=== PATIENT | male | born 1940 | race Caucasian/White ===

== ENCOUNTER 2025-04-07 10:09 | Inpatient (IN) | payer BC, MEDICAID ==
[~2025-04-07] VITALS: Ht 167.6 cm; Wt 64.4 kg
[2025-04-07] VITALS (43 sets, daily range): BP systolic 73–232; BP diastolic 37–152; PULSE 50–83; RESP 16–25; TEMP 36.9–37.00296; O2SAT 98–100
[~2025-04-07 10:09] MED LIST: FOLI1TAB87 MT; FURO80TA3 MT
[2025-04-07 11:16] LABS: BASOPHILS % 0.8 % (0.0-2.0); EOSINOPHILS % 3.2 % (0.0-5.0); HEMATOCRIT. 36.3 % (42.0-52.0); HEMOGLOBIN. 11.7 g/dL (14.0-18.0); LYMPHOCYTES % 27.1 % (20.0-50.0); MEAN CORPUSCULAR HEMOGLOBIN 32.1 pg (28.0-32.0); MEAN CORPUSCULAR HGB CONC 32.3 g/dL (31.0-37.0); MEAN CORPUSCULAR VOLUME 99.5 fL (80.0-94.0); MEAN PLATELET VOLUME 8.8 fl (7.4-10.4); MONOCYTES % 8.2 % (2.0-8.0); NEUTROPHILS % 60.7 % (40.0-76.0); PLATELET 150 x1000/uL (130-400); RED BLOOD CELL COUNT 3.65 mill/uL (4.7-6.1); RED CELL DISTRIBUTION WIDTH 15.2 % (11.6-14.6); WHITE BLOOD COUNT 7.6 x1000/uL (4.5-11.0)
[2025-04-07] MEDS ORDERED: LORAZEPAM 2MG/ML INJ IV ONE (11:30)
[2025-04-07 11:31] LABS: CHLORIDE 104 mEq/L (98-107); PROTHROMBIN TIME 10.6 sec (9.6-11.0); SODIUM 141 mEq/L (136-145)
[2025-04-07 11:32] LABS: CALCIUM 9.8 mg/dL (8.7-10.4); CARBON DIOXIDE 21 mEq/L (21-32)
[2025-04-07 11:37] LABS: GLUCOSE 141 mg/dL (70-105); TROPONIN I HIGH SENSITIVITY 23 ng/L (3.0-53); UREA NITROGEN BLOOD 57 mg/dL (9-23)
[2025-04-07 11:39] LABS: ALANINE AMINOTRANSFERASE 36 IU/L (10-49); ALBUMIN 4.5 g/dL (3.2-4.8); ASPARTATE AMINOTRANSFERASE 38 IU/L (<34); BILIRUBIN DIRECT 0.1 mg/dL (<=3.0); BILIRUBIN TOTAL 0.3 mg/dL (0.1-1.0); PROTEIN TOTAL 7.9 g/dL (6.0-8.3)
[2025-04-07] MEDS: LORAZEPAM 2MG/ML UD SYRINGE IV SCH (11:41)
[2025-04-07] MEDS: HYDRALAZINE 20MG/ML VIAL IV ONE (11:45)
[2025-04-07] MEDS: ETOMIDATE 2MG/ML 10ML VIAL IV ONE (12:03)
[2025-04-07] MEDS: VECURONIUM BROMIDE 10 MG/VIAL IV ONE (12:03)
[2025-04-07 12:23] LABS: CREATININE 9.2 mg/dL (0.6-1.3); POTASSIUM 6.8 mEq/L (3.5-5.1)
[2025-04-07] MEDS ORDERED: CALCIUM GLUCONATE 1,000 MG in DEXT 5% WATER 100 ML IV ONE (12:30)
[2025-04-07] MEDS: CALCIUM GLUCONATE 1GM PREMIX 50 ML IV SCH (12:43)
[2025-04-07] MEDS: INSULIN REGULAR (HUMULIN R) 1000UNITS/10ML VIAL IV ONE (13:02)
[2025-04-07] MEDS: DEXTROSE 50% WATER 50ML SYRINGE IV ONE (13:04)
[2025-04-07] MEDS: SODIUM BICARBONATE 8.4% 50MEQ/50ML SYR IV ONE (13:04)
[2025-04-07] MEDS: PROPOFOL 10MG/ML 100ML 100 ML IV SCH (13:39)
[2025-04-07] MEDS ORDERED: LIDOCAINE HCL 1% 10 MG/ML 10ML VIAL ONE (14:36)
[2025-04-07 18:36] LABS: BG BASE EXCESS -6.3 mmol/L (-2.0-3.0); BG CARBOXYHEMOGLOBIN 0.4 % (0.5-1.5); BG DEOXYHEMOGLOBIN 0.5 % (0.0-5.0); BG FRACTION INSPIRED OXYGEN 100; BG HCO3 ACT 18.9 mmol/L (21.0-28.0); BG METHEMOGLOBIN 0.3 % (0.5-1.5); BG OXYGEN SATURATION 99.5 % (94.0-98.0); BG OXYHEMOGLOBIN 98.8 % (94.0-98.0); BG PCO2 36.3 mmHg (35.0-48.0); BG PH 7.335 (7.350-7.450); BG PO2 440.2 mmHg (83.0-108.0); BG SAMPLE SITE RIGHT RADIAL; BG TOTAL HEMOGLOBIN 10.8 g/dL (13.5-17.5); BG VENT MODE VENT - AC
[2025-04-07] MEDS: SODIUM CHLORIDE 0.9% 1,000 ML IV SCH (19:58)
[2025-04-07] MEDS: SODIUM BICARBONATE 8.4% 50MEQ/50ML SYR IV NR (19:58)
[2025-04-07 20:53] LABS: POTASSIUM 5.4 mEq/L (3.5-5.1)
[2025-04-07] MEDS: LEVOFLOXACIN 500MG PREMIX 100 ML IV SCH (21:21)
[2025-04-07] MEDS: PHENYLEPHRINE 100 MG in DEXT 5% WATER 240 ML IV PRN (21:21)
[2025-04-07] MEDS: VANCOMYCIN 1G PREMIX 200 ML IV SCH (21:21)
[2025-04-08] VITALS (78 sets, daily range): BP systolic 107–190; BP diastolic 47–79; PULSE 58–68; RESP 10–23; TEMP 36.7–36.9; O2SAT 96–100
[2025-04-08 00:33] LABS: CREATINE KINASE MB FRACTION 3.1 ng/mL (0.5-3.6)
[2025-04-08] MEDS: PROPOFOL 10MG/ML 100ML 100 ML IV PRN (05:02)
[2025-04-08 05:31] LABS: BASOPHILS % 0.5 % (0.0-2.0); EOSINOPHILS % 2.1 % (0.0-5.0); HEMATOCRIT. 30.9 % (42.0-52.0); HEMOGLOBIN. 10.3 g/dL (14.0-18.0); LYMPHOCYTES % 10.6 % (20.0-50.0); MEAN CORPUSCULAR HEMOGLOBIN 32.7 pg (28.0-32.0); MEAN CORPUSCULAR HGB CONC 33.3 g/dL (31.0-37.0); MEAN CORPUSCULAR VOLUME 98.3 fL (80.0-94.0); MEAN PLATELET VOLUME 9.1 fl (7.4-10.4); MONOCYTES % 11.1 % (2.0-8.0); NEUTROPHILS % 75.7 % (40.0-76.0); PLATELET 122 x1000/uL (130-400); RED BLOOD CELL COUNT 3.15 mill/uL (4.7-6.1); WHITE BLOOD COUNT 6.6 x1000/uL (4.5-11.0)
[2025-04-08 05:51] LABS: POTASSIUM 4.7 mEq/L (3.5-5.1)
[2025-04-08 05:53] LABS: CALCIUM 8.7 mg/dL (8.7-10.4)
[2025-04-08 06:00] LABS: PHOSPHORUS 4.3 mg/dL (2.5-4.9)
[2025-04-08 06:03] LABS: CREATININE 6.7 mg/dL (0.6-1.3)
[2025-04-08] MEDS: ENOXAPARIN 30MG/0.3ML SYR SUBCUT SCH (08:24)
[2025-04-08] MEDS ORDERED: HALOPERIDOL LACTATE 5MG/ML VIAL IM NR (17:00)
[2025-04-08 18:52] LABS: BG CARBOXYHEMOGLOBIN 0.2 % (0.5-1.5); BG DEOXYHEMOGLOBIN 1.9 % (0.0-5.0); BG FRACTION INSPIRED OXYGEN 40; BG HCO3 ACT 20.8 mmol/L (21.0-28.0); BG METHEMOGLOBIN 0.3 % (0.5-1.5); BG OXYGEN SATURATION 98.1 % (94.0-98.0); BG OXYHEMOGLOBIN 97.6 % (94.0-98.0); BG PCO2 36.7 mmHg (35.0-48.0); BG PH 7.371 (7.350-7.450); BG SAMPLE SITE RIGHT BRACHIAL; BG TOTAL HEMOGLOBIN 10.8 g/dL (13.5-17.5); BG VENT MODE VENT - CPAP
[2025-04-08] MEDS: HYDRALAZINE 20MG/ML VIAL IV NR (20:51)
[2025-04-08] MEDS: ONDANSETRON HCL 4MG/2ML INJ IV PRN (21:33)
[2025-04-08] MEDS: LORAZEPAM 2MG/ML UD SYRINGE IV PRN (21:50)
[2025-04-08] MEDS: HYDROMORPHONE HCL/PF 2MG/ML INJ IV PRN (21:51)
[2025-04-08 22:23] LABS: BG CARBOXYHEMOGLOBIN 0.8 % (0.5-1.5); BG DEOXYHEMOGLOBIN 2.7 % (0.0-5.0); BG FRACTION INSPIRED OXYGEN 28; BG HCO3 ACT 20.2 mmol/L (21.0-28.0); BG METHEMOGLOBIN 0.3 % (0.5-1.5); BG OXYGEN SATURATION 97.3 % (94.0-98.0); BG OXYHEMOGLOBIN 96.2 % (94.0-98.0); BG PH 7.344 (7.350-7.450); BG PO2 101.2 mmHg (83.0-108.0); BG SAMPLE SITE RIGHT RADIAL; BG TOTAL HEMOGLOBIN 10.4 g/dL (13.5-17.5); BG VENT MODE NASAL CANNULA
[2025-04-09] VITALS (32 sets, daily range): BP systolic 102–159; BP diastolic 50–100; PULSE 61–76; RESP 11–26; TEMP 36.3–37; O2SAT 89–100
[2025-04-09 05:20] LABS: BASOPHILS % 0.4 % (0.0-2.0); EOSINOPHILS % 2.2 % (0.0-5.0); HEMATOCRIT. 30.4 % (42.0-52.0); HEMOGLOBIN. 10.3 g/dL (14.0-18.0); LYMPHOCYTES % 11.4 % (20.0-50.0); MEAN CORPUSCULAR HEMOGLOBIN 32.8 pg (28.0-32.0); MEAN CORPUSCULAR HGB CONC 33.7 g/dL (31.0-37.0); MEAN CORPUSCULAR VOLUME 97.4 fL (80.0-94.0); MEAN PLATELET VOLUME 9.5 fl (7.4-10.4); MONOCYTES % 10.8 % (2.0-8.0); NEUTROPHILS % 75.2 % (40.0-76.0); PLATELET 118 x1000/uL (130-400); RED BLOOD CELL COUNT 3.13 mill/uL (4.7-6.1); RED CELL DISTRIBUTION WIDTH 14.6 % (11.6-14.6); WHITE BLOOD COUNT 7.6 x1000/uL (4.5-11.0)
[2025-04-09 05:23] LABS: POTASSIUM 5.4 mEq/L (3.5-5.1)
[2025-04-09 05:24] LABS: CALCIUM 8.2 mg/dL (8.7-10.4)
[2025-04-09 05:31] LABS: CREATININE 8.4 mg/dL (0.6-1.3)
[2025-04-09] MEDS ORDERED: DEXTROSE 50% WATER 50ML SYRINGE IV PRN (07:30)
[2025-04-09 09:06] LABS: BG BASE EXCESS -6.3 mmol/L (-2.0-3.0); BG CARBOXYHEMOGLOBIN 1.5 % (0.5-1.5); BG DEOXYHEMOGLOBIN 6.2 % (0.0-5.0); BG FRACTION INSPIRED OXYGEN 28; BG HCO3 ACT 20.6 mmol/L (21.0-28.0); BG METHEMOGLOBIN 0.3 % (0.5-1.5); BG OXYGEN SATURATION 93.7 % (94.0-98.0); BG PCO2 46.8 mmHg (35.0-48.0); BG PH 7.262 (7.350-7.450); BG PO2 75.6 mmHg (83.0-108.0); BG SAMPLE SITE RIGHT RADIAL; BG TOTAL HEMOGLOBIN 10.9 g/dL (13.5-17.5); BG VENT MODE NASAL CANNULA
[2025-04-09] MEDS: BLOOD SUGAR DIAGNOSTIC STRIP TEST SCH (11:30)
[2025-04-09] MEDS: INSULIN LISPRO 100 UNITS/ML SUBCUT SCH (11:40)
[2025-04-09] MEDS: VANCOMYCIN 500MG/100ML IV NR (17:58)
[2025-04-09] MEDS: LEVOFLOXACIN 250MG PREMIX 50 ML IV SCH (21:58)
[2025-04-09] MEDS: IPRATROPIUM/ALBUTEROL 0.5-3(2.5)MG/3ML NEB NEB PRN (23:01)
[2025-04-09] MEDS ORDERED: NALOXONE HCL 0.4MG/ML VIAL IV PRN (23:45)
[2025-04-10] VITALS (9 sets, daily range): BP systolic 115–172; BP diastolic 47–95; PULSE 67–93; RESP 15–21; TEMP 36.2–37.7; O2SAT 92–98
[2025-04-10 04:48] LABS: POTASSIUM 4.8 mEq/L (3.5-5.1)
[2025-04-10 04:50] LABS: CALCIUM 8.5 mg/dL (8.7-10.4)
[2025-04-10 04:59] LABS: CREATININE 7.5 mg/dL (0.6-1.3)
[2025-04-10 06:15] LABS: BASOPHILS % 0.4 % (0.0-2.0); EOSINOPHILS % 1.7 % (0.0-5.0); HEMATOCRIT. 29.9 % (42.0-52.0); LYMPHOCYTES % 12.1 % (20.0-50.0); MEAN CORPUSCULAR HEMOGLOBIN 32.5 pg (28.0-32.0); MEAN CORPUSCULAR HGB CONC 33.4 g/dL (31.0-37.0); MEAN CORPUSCULAR VOLUME 97.4 fL (80.0-94.0); MONOCYTES % 11.6 % (2.0-8.0); NEUTROPHILS % 74.2 % (40.0-76.0); PLATELET 116 x1000/uL (130-400); RED BLOOD CELL COUNT 3.07 mill/uL (4.7-6.1); RED CELL DISTRIBUTION WIDTH 14.5 % (11.6-14.6); WHITE BLOOD COUNT 7.2 x1000/uL (4.5-11.0)
[2025-04-10] MEDS: ACETAMINOPHEN 325MG TABLET PO PRN (15:40)
[2025-04-10] MEDS: LOSARTAN 25 MG TABLET PO SCH (17:04)
[2025-04-10] MEDS: LABETALOL HCL 100MG TABLET PO SCH (18:00)
[2025-04-11] VITALS (13 sets, daily range): BP systolic 121–185; BP diastolic 60–74; PULSE 55–77; RESP 18–22; TEMP 35.6–36.8; O2SAT 93–100
[2025-04-11] MEDS: CLONIDINE 0.1MG TABLET PO PRN (04:45)
[2025-04-11] MEDS: ISOSORBIDE MONONITRATE 30MG TABLET SR 24HR PO SCH (12:09)
[2025-04-11] MEDS: PROMETHAZINE/DEXTROMETHORPHAN 6.25-15MG/5ML PO PRN (13:23)
[2025-04-11 16:37] LABS: BASOPHILS % 0.3 % (0.0-2.0); HEMATOCRIT. 25.6 % (42.0-52.0); HEMOGLOBIN. 8.9 g/dL (14.0-18.0); LYMPHOCYTES % 9.3 % (20.0-50.0); MEAN CORPUSCULAR HGB CONC 34.6 g/dL (31.0-37.0); MEAN CORPUSCULAR VOLUME 98.2 fL (80.0-94.0); MEAN PLATELET VOLUME 8.7 fl (7.4-10.4); MONOCYTES % 7.4 % (2.0-8.0); PLATELET 119 x1000/uL (130-400); RED CELL DISTRIBUTION WIDTH 14.3 % (11.6-14.6); WHITE BLOOD COUNT 7.4 x1000/uL (4.5-11.0)
[2025-04-11 16:57] LABS: POTASSIUM 4.4 mEq/L (3.5-5.1)
[2025-04-11 16:59] LABS: CALCIUM 7.9 mg/dL (8.7-10.4)
[2025-04-11 17:10] LABS: CREATININE 6.8 mg/dL (0.6-1.3)
[2025-04-11] MEDS: VANCOMYCIN 500MG PREMIX 100 ML IV NR (20:52)
[2025-04-11] MEDS: LEVOFLOXACIN 250MG TABLET PO SCH (21:32)
[2025-04-12] VITALS (7 sets, daily range): BP systolic 116–178; BP diastolic 56–69; PULSE 64–91; RESP 18–26; TEMP 36.1–36.9; O2SAT 95–99
[2025-04-12] MEDS: GUAIFENESIN 600MG ER TABLET PO SCH (21:32)
[2025-04-13] VITALS (18 sets, daily range): BP systolic 131–185; BP diastolic 47–82; PULSE 50–91; RESP 16–22; TEMP 36.2–36.6; O2SAT 95–100
[2025-04-13] MEDS: ISOSORBIDE MONONITRATE 60MG TABLET SR 24HR PO SCH (08:30)
[2025-04-13 12:20] LABS: BG BASE EXCESS -4.5 mmol/L (-2.0-3.0); BG CARBOXYHEMOGLOBIN 0.7 % (0.5-1.5); BG DEOXYHEMOGLOBIN 2.5 % (0.0-5.0); BG FRACTION INSPIRED OXYGEN 28; BG HCO3 ACT 20.5 mmol/L (21.0-28.0); BG METHEMOGLOBIN 0.3 % (0.5-1.5); BG OXYGEN SATURATION 97.5 % (94.0-98.0); BG OXYHEMOGLOBIN 96.5 % (94.0-98.0); BG PCO2 37.3 mmHg (35.0-48.0); BG PH 7.358 (7.350-7.450); BG PO2 111.1 mmHg (83.0-108.0); BG SAMPLE SITE RIGHT RADIAL; BG TOTAL HEMOGLOBIN 8.4 g/dL (13.5-17.5); BG VENT MODE NASAL CANNULA
[2025-04-13 16:08] LABS: BASOPHILS % 0.7 % (0.0-2.0); EOSINOPHILS % 5.6 % (0.0-5.0); HEMATOCRIT. 25.6 % (42.0-52.0); HEMOGLOBIN. 8.6 g/dL (14.0-18.0); LYMPHOCYTES % 13.3 % (20.0-50.0); MEAN CORPUSCULAR HGB CONC 33.8 g/dL (31.0-37.0); MEAN CORPUSCULAR VOLUME 97.6 fL (80.0-94.0); MEAN PLATELET VOLUME 8.8 fl (7.4-10.4); MONOCYTES % 9.2 % (2.0-8.0); NEUTROPHILS % 71.2 % (40.0-76.0); PLATELET 120 x1000/uL (130-400); RED BLOOD CELL COUNT 2.62 mill/uL (4.7-6.1); RED CELL DISTRIBUTION WIDTH 14.2 % (11.6-14.6); WHITE BLOOD COUNT 5.5 x1000/uL (4.5-11.0)
[2025-04-13 16:27] LABS: CALCIUM 8.1 mg/dL (8.7-10.4)
[2025-04-13 16:38] LABS: CREATININE 10.2 mg/dL (0.6-1.3); POTASSIUM 6.8 mEq/L (3.5-5.1)
[2025-04-13 18:28] LABS: BG BASE EXCESS -6.6 mmol/L (-2.0-3.0); BG CARBOXYHEMOGLOBIN 0.5 % (0.5-1.5); BG FRACTION INSPIRED OXYGEN 21; BG HCO3 ACT 18.1 mmol/L (21.0-28.0); BG METHEMOGLOBIN 0.3 % (0.5-1.5); BG OXYHEMOGLOBIN 93.2 % (94.0-98.0); BG PH 7.356 (7.350-7.450); BG PO2 76.7 mmHg (83.0-108.0); BG SAMPLE SITE RIGHT RADIAL; BG TOTAL HEMOGLOBIN 11.1 g/dL (13.5-17.5); BG VENT MODE ROOM AIR
[2025-04-13] MEDS ORDERED: SODIUM BICARBONATE 8.4% 50MEQ/50ML SYR IV NR (19:00)
[2025-04-13] MEDS ORDERED: DEXTROSE 50% WATER 50ML SYRINGE IV NR (19:00)
[2025-04-13] MEDS ORDERED: INSULIN REGULAR (HUMULIN R) 1000UNITS/10ML VIAL IV NR (19:00)
[2025-04-13] MEDS: CALCIUM GLUCONATE 1GM PREMIX 50 ML IV NR (22:00)
[2025-04-13 22:15] LABS: HEPATITIS B SURFACE ANTIGEN NEGATIVE (Negative)
[2025-04-13 22:36] LABS: HEPATITIS A AB IGM NEGATIVE (Negative)
[2025-04-13 22:37] LABS: HEPATITIS B CORE AB IGM NEGATIVE (Negative); HEPATITIS C AB NON REACTIVE (Neg) (Negative)
[2025-04-14] VITALS: BP 185/65; PULSE 64; RESP 17; TEMP 36.3; O2SAT 98
[2025-04-14 04:00] VITALS: BP 134/52; PULSE 80; RESP 19; TEMP 36.4; O2SAT 96
[2025-04-14 08:00] VITALS: BP 166/62; PULSE 67; RESP 17; TEMP 36.6; O2SAT 99
[2025-04-14 08:40] LABS: POTASSIUM 4.9 mEq/L (3.5-5.1)
[2025-04-14] MEDS ORDERED: ISOS60TA76 PO (11:43)
[2025-04-14] MEDS ORDERED: LABE100T9 PO (11:43)
[2025-04-14] MEDS ORDERED: LOSA25TA26 PO (11:43)
[2025-04-14 12:00] VITALS: BP 151/60; PULSE 60; RESP 16; TEMP 36.2; O2SAT 98
[2025-04-14 16:00] VITALS: BP 155/54; PULSE 62; RESP 16; TEMP 36.6; O2SAT 98
[2025-04-14] MEDS ORDERED: ACETAMINOPHEN 325MG TABLET PO PRN (18:15)
[2025-04-14 20:51] VITALS: BP 126/99; PULSE 62; TEMP 97.5; O2SAT 99
== END 2025-04-14 21:50 | disposition home or self-care (01) | DRG 208 ==
LOC: ER 10:09 → MICUSO 13:32 → EDBEDREQTM 13:35 → EDBEDREQ 13:35 → ENRESERV 13:55 → 6WST 04-09 13:52
PROVIDERS: ADMIT Internal Medicine; ATTEND Internal Medicine
PROC: 5A1945Z Respiratory Ventilation, 24-96 Consecutive Hours (ICD-10-PCS; principal; 2025-04-07)
PROC: 0BH17EZ Insertion of Endotracheal Airway into Trachea, Via Natural or Artificial Opening (ICD-10-PCS; 2025-04-07)
PROC: 5A1D70Z Performance of Urinary Filtration, Intermittent, Less than 6 Hours Per Day (ICD-10-PCS; 2025-04-07)
PROC: 05HY33Z Insertion of Infusion Device into Upper Vein, Percutaneous Approach (ICD-10-PCS; 2025-04-07)
PROC: B54MZZA Ultrasonography of Right Upper Extremity Veins, Guidance (ICD-10-PCS; 2025-04-07)
PROC: 5A1D70Z Performance of Urinary Filtration, Intermittent, Less than 6 Hours Per Day (ICD-10-PCS; 2025-04-09)
PROC: 5A1D70Z Performance of Urinary Filtration, Intermittent, Less than 6 Hours Per Day (ICD-10-PCS; 2025-04-11)
PROC: 5A1D70Z Performance of Urinary Filtration, Intermittent, Less than 6 Hours Per Day (ICD-10-PCS; 2025-04-13)
DX: J96.21 Acute and chronic respiratory failure with hypoxia (principal); G92.8 Other toxic encephalopathy; I21.A1 Myocardial infarction type 2; N18.6 End stage renal disease; I13.2 Hypertensive heart and chronic kidney disease with heart failure and with stage 5 chronic kidney disease, or end stage renal disease; R00.1 Bradycardia, unspecified; I50.9 Heart failure, unspecified; E87.5 Hyperkalemia; E11.22 Type 2 diabetes mellitus with diabetic chronic kidney disease; D64.9 Anemia, unspecified; Z99.2 Dependence on renal dialysis; Z79.899 Other long term (current) drug therapy
CPT/HCPCS: 31500; 31720; 36415; 36573; 36600; 71045; 80048; 80076; 80202; 82375; 82550; 82553; 82805; 82962; 83036; 84100; 84132; 84478; 84484; 85025; 86705; 86709; 87070; 87340; 90935; 93005; 94002; 94003; 94070; 94640; 94664; 94760; 98960; 99291; A4606; C1725; J0360; J0610; J1171; J1650; J1815; J1956; J2003; J2060; J2371; J2405; J2704; J3370; J3490; J7030; J7060

== ENCOUNTER 2025-05-04 18:34 | Inpatient (IN) | payer BC, MEDICAID, MEDICARE ==
[~2025-05-04] VITALS: Ht 167.6 cm; Wt 57.2 kg
[2025-05-04] VITALS (11 sets, daily range): BP systolic 121–174; BP diastolic 36–109; PULSE 37–82; RESP 17–20; TEMP 36.9; O2SAT 97–100
[~2025-05-04 18:34] MED LIST changes: +ISOS60TA76 PO; +LABE100T9 PO; +LOSA25TA26 PO
[2025-05-04] MEDS ORDERED: CALCIUM GLUCONATE 1,000 MG in DEXT 5% WATER 100 ML IV ONE (18:45)
[2025-05-04] MEDS: DEXTROSE 50% WATER 50ML SYRINGE IV ONE (19:11)
[2025-05-04] MEDS: CALCIUM GLUCONATE 1GM PREMIX 50 ML IV NR (19:14)
[2025-05-04 19:23] LABS: BASOPHILS % 1.1 % (0.0-2.0); HEMATOCRIT. 29.8 % (42.0-52.0); HEMOGLOBIN. 10.1 g/dL (14.0-18.0); LYMPHOCYTES % 23.6 % (20.0-50.0); MEAN CORPUSCULAR HEMOGLOBIN 33.6 pg (28.0-32.0); MEAN CORPUSCULAR HGB CONC 33.8 g/dL (31.0-37.0); MEAN CORPUSCULAR VOLUME 99.2 fL (80.0-94.0); MEAN PLATELET VOLUME 8.9 fl (7.4-10.4); MONOCYTES % 10.2 % (2.0-8.0); NEUTROPHILS % 59.1 % (40.0-76.0); PLATELET 170 x1000/uL (130-400); RED BLOOD CELL COUNT 3.01 mill/uL (4.7-6.1); RED CELL DISTRIBUTION WIDTH 15.5 % (11.6-14.6); WHITE BLOOD COUNT 7.7 x1000/uL (4.5-11.0)
[2025-05-04 19:28] LABS: CHLORIDE 101 mEq/L (98-107); SODIUM 134 mEq/L (136-145)
[2025-05-04 19:29] LABS: CALCIUM 9.6 mg/dL (8.7-10.4); CARBON DIOXIDE 24 mEq/L (21-32)
[2025-05-04 19:34] LABS: GLUCOSE 133 mg/dL (70-105)
[2025-05-04 19:35] LABS: TROPONIN I HIGH SENSITIVITY 20 ng/L (3.0-53); UREA NITROGEN BLOOD 45 mg/dL (9-23)
[2025-05-04 19:36] LABS: ALANINE AMINOTRANSFERASE 39 IU/L (10-49); ALBUMIN 4.6 g/dL (3.2-4.8); ASPARTATE AMINOTRANSFERASE 51 IU/L (<34); BILIRUBIN DIRECT 0.1 mg/dL (<=3.0)
[2025-05-04 19:37] LABS: BILIRUBIN TOTAL 0.3 mg/dL (0.1-1.0); PHOSPHORUS 7.2 mg/dL (2.5-4.9); PROTEIN TOTAL 7.5 g/dL (6.0-8.3)
[2025-05-04] MEDS: ATROPINE SULFATE 1MG/10ML SYR IV ONE (19:40)
[2025-05-04 19:47] LABS: CREATININE 7.7 mg/dL (0.6-1.3)
[2025-05-04 19:50] LABS: POTASSIUM 7.7 mEq/L (3.5-5.1)
[2025-05-04] MEDS: INSULIN REGULAR (HUMULIN R) 1000UNITS/10ML VIAL IV ONE (19:57)
[2025-05-04] MEDS: SODIUM BICARBONATE 8.4% 50MEQ/50ML SYR IV ONE (20:00)
[2025-05-04] MEDS: ALBUTEROL (0.083%) 2.5MG/3ML NEB HHN SCH (20:50)
[2025-05-04] MEDS ORDERED: ONDANSETRON HCL 4MG/2ML INJ IV PRN (21:45)
[2025-05-04] MEDS ORDERED: NALOXONE HCL 0.4MG/ML VIAL IV PRN (22:00)
[2025-05-04 22:09] LABS: HEPATITIS B SURFACE ANTIGEN NEGATIVE (Negative)
[2025-05-04 22:29] LABS: HEPATITIS A AB IGM NEGATIVE (Negative)
[2025-05-04 22:30] LABS: HEPATITIS B CORE AB IGM NEGATIVE (Negative)
[2025-05-04 22:31] LABS: HEPATITIS C AB NON REACTIVE (Neg) (Negative)
[2025-05-05] VITALS (104 sets, daily range): BP systolic 88–226; BP diastolic 40–122; PULSE 35–79; RESP 12–27; TEMP 35–36.7; O2SAT 95–100
[2025-05-05] MEDS ORDERED: DEXMEDETOMIDINE 400 MCG/100 ML 100 ML IV PRN (01:15)
[2025-05-05] MEDS: HYDROMORPHONE HCL/PF 1MG/ML INJ IV NR (01:35)
[2025-05-05] MEDS: PROPOFOL 10MG/ML 100ML 100 ML IV PRN (01:35)
[2025-05-05] MEDS: DOPAMINE 400MG/250ML PREMIX 250 ML IV PRN (01:36)
[2025-05-05 02:25] LABS: CREATINE KINASE MB FRACTION 5.3 ng/mL (0.5-3.6)
[2025-05-05 05:13] LABS: BG BASE EXCESS -3.1 mmol/L (-2.0-3.0); BG CARBOXYHEMOGLOBIN 0.4 % (0.5-1.5); BG DEOXYHEMOGLOBIN 1.7 % (0.0-5.0); BG FRACTION INSPIRED OXYGEN 40; BG HCO3 ACT 23.1 mmol/L (21.0-28.0); BG METHEMOGLOBIN 0.3 % (0.5-1.5); BG OXYGEN SATURATION 98.3 % (94.0-98.0); BG OXYHEMOGLOBIN 97.6 % (94.0-98.0); BG PCO2 45.8 mmHg (35.0-48.0); BG PO2 132.9 mmHg (83.0-108.0); BG SAMPLE SITE RIGHT RADIAL; BG TOTAL HEMOGLOBIN 11.9 g/dL (13.5-17.5); BG VENT MODE VENT - AC
[2025-05-05 05:55] LABS: BASOPHILS % 0.7 % (0.0-2.0); EOSINOPHILS % 1.4 % (0.0-5.0); HEMATOCRIT. 34.3 % (42.0-52.0); HEMOGLOBIN. 11.3 g/dL (14.0-18.0); LYMPHOCYTES % 12.2 % (20.0-50.0); MEAN CORPUSCULAR HEMOGLOBIN 32.9 pg (28.0-32.0); MEAN CORPUSCULAR VOLUME 99.8 fL (80.0-94.0); MEAN PLATELET VOLUME 8.9 fl (7.4-10.4); MONOCYTES % 10.8 % (2.0-8.0); NEUTROPHILS % 74.9 % (40.0-76.0); PLATELET 141 x1000/uL (130-400); RED BLOOD CELL COUNT 3.44 mill/uL (4.7-6.1); RED CELL DISTRIBUTION WIDTH 15.2 % (11.6-14.6)
[2025-05-05 06:03] LABS: CALCIUM 9.8 mg/dL (8.7-10.4)
[2025-05-05 06:05] LABS: CREATINE KINASE MB FRACTION 4.9 ng/mL (0.5-3.6)
[2025-05-05] MEDS: SEVELAMER CARBONATE 800 MG TABLET PO SCH (07:00)
[2025-05-05 07:10] LABS: CREATININE 5.4 mg/dL (0.6-1.3); POTASSIUM 5.5 mEq/L (3.5-5.1)
[2025-05-05] MEDS ORDERED: ETOMIDATE 2MG/ML 10ML VIAL IV ONE (07:44)
[2025-05-05] MEDS: IPRATROPIUM/ALBUTEROL 0.5-3(2.5)MG/3ML NEB HHN PRN (08:39)
[2025-05-05] MEDS: ENOXAPARIN 30MG/0.3ML SYR SUBCUT SCH (09:54)
[2025-05-05 10:05] LABS: BG CARBOXYHEMOGLOBIN 0.1 % (0.5-1.5); BG DEOXYHEMOGLOBIN 1.4 % (0.0-5.0); BG FRACTION INSPIRED OXYGEN 40; BG HCO3 ACT 24.1 mmol/L (21.0-28.0); BG METHEMOGLOBIN 0.3 % (0.5-1.5); BG OXYGEN SATURATION 98.6 % (94.0-98.0); BG OXYHEMOGLOBIN 98.2 % (94.0-98.0); BG PCO2 41.9 mmHg (35.0-48.0); BG PH 7.378 (7.350-7.450); BG PO2 140.5 mmHg (83.0-108.0); BG SAMPLE SITE RIGHT RADIAL; BG TOTAL HEMOGLOBIN 10.9 g/dL (13.5-17.5); BG VENT MODE VENT - AC
[2025-05-05 11:00] LABS: HEMATOCRIT 31.5 % (42.0-52.0); MEAN CORPUSCULAR HEMOGLOBIN 32.1 pg (28.0-32.0); MEAN CORPUSCULAR HGB CONC 31.8 g/dL (31.0-37.0); MEAN CORPUSCULAR VOLUME 101.1 fL (80.0-94.0); PLATELET 128 x1000/uL (130-400); RED BLOOD CELL COUNT 3.11 mill/uL (4.7-6.1); WHITE BLOOD COUNT 6.9 x1000/uL (4.5-11.0)
[2025-05-05 11:09] LABS: CALCIUM 8.7 mg/dL (8.7-10.4)
[2025-05-05 11:38] LABS: CREATININE 5.7 mg/dL (0.6-1.3); POTASSIUM 6.2 mEq/L (3.5-5.1)
[2025-05-05] MEDS: SODIUM BICARBONATE 8.4% 50MEQ/50ML SYR IV NR (12:03)
[2025-05-05] MEDS: DEXTROSE 50% WATER 50ML SYRINGE IV NR (12:04)
[2025-05-05] MEDS: INSULIN REGULAR (HUMULIN R) 1000UNITS/10ML VIAL IV NR (12:04)
[2025-05-05] MEDS: SODIUM POLYSTYRENE SULFONATE 15 G/60 ML BOT PO NR (14:27)
[2025-05-05 16:36] LABS: POTASSIUM 5.5 mEq/L (3.5-5.1)
[2025-05-05 22:22] LABS: POTASSIUM 5.3 mEq/L (3.5-5.1)
[2025-05-06] VITALS (97 sets, daily range): BP systolic 126–196; BP diastolic 47–89; PULSE 56–89; RESP 14–22; TEMP 36.16956–36.9; O2SAT 10–100
[2025-05-06] MEDS: PROPOFOL 10MG/ML 100ML 100 ML IV PRN (03:45)
[2025-05-06 06:14] LABS: BASOPHILS % 0.8 % (0.0-2.0); HEMATOCRIT. 30.9 % (42.0-52.0); HEMOGLOBIN. 10.4 g/dL (14.0-18.0); LYMPHOCYTES % 13.1 % (20.0-50.0); MEAN CORPUSCULAR HGB CONC 33.5 g/dL (31.0-37.0); MEAN CORPUSCULAR VOLUME 98.8 fL (80.0-94.0); MEAN PLATELET VOLUME 9.4 fl (7.4-10.4); MONOCYTES % 11.9 % (2.0-8.0); NEUTROPHILS % 71.2 % (40.0-76.0); PLATELET 120 x1000/uL (130-400); RED BLOOD CELL COUNT 3.13 mill/uL (4.7-6.1); RED CELL DISTRIBUTION WIDTH 15.2 % (11.6-14.6); WHITE BLOOD COUNT 6.2 x1000/uL (4.5-11.0)
[2025-05-06 06:29] LABS: CHLORIDE 98 mEq/L (98-107); POTASSIUM 5.1 mEq/L (3.5-5.1); SODIUM 139 mEq/L (136-145)
[2025-05-06 06:32] LABS: CALCIUM 8.4 mg/dL (8.7-10.4); CARBON DIOXIDE 24 mEq/L (21-32)
[2025-05-06 06:37] LABS: ALANINE AMINOTRANSFERASE 32 IU/L (10-49); GLUCOSE 86 mg/dL (70-105); TRIGLYCERIDE 228 mg/dL (0-150); UREA NITROGEN BLOOD 36 mg/dL (9-23)
[2025-05-06 06:39] LABS: ASPARTATE AMINOTRANSFERASE 56 IU/L (<34); BILIRUBIN DIRECT 0.1 mg/dL (<=3.0); BILIRUBIN TOTAL 0.3 mg/dL (0.1-1.0); PROTEIN TOTAL 6.8 g/dL (6.0-8.3)
[2025-05-06 07:06] LABS: CREATININE 7.2 mg/dL (0.6-1.3)
[2025-05-06] MEDS: VANCOMYCIN 1.5GM PMX (XELLIA) 300 ML IV NR (12:53)
[2025-05-06] MEDS: HYDRALAZINE 20MG/ML VIAL IV PRN (16:38)
[2025-05-07] VITALS (75 sets, daily range): BP systolic 107–205; BP diastolic 38–160; PULSE 56–91; RESP 11–23; TEMP 35.9–37; O2SAT 87–100
[2025-05-07 05:21] LABS: BASOPHILS % 0.9 % (0.0-2.0); EOSINOPHILS % 4.3 % (0.0-5.0); HEMATOCRIT. 30.9 % (42.0-52.0); HEMOGLOBIN. 10.3 g/dL (14.0-18.0); LYMPHOCYTES % 13.4 % (20.0-50.0); MEAN CORPUSCULAR HEMOGLOBIN 32.9 pg (28.0-32.0); MEAN CORPUSCULAR HGB CONC 33.4 g/dL (31.0-37.0); MEAN CORPUSCULAR VOLUME 98.5 fL (80.0-94.0); MONOCYTES % 11.6 % (2.0-8.0); NEUTROPHILS % 69.8 % (40.0-76.0); PLATELET 124 x1000/uL (130-400); RED BLOOD CELL COUNT 3.13 mill/uL (4.7-6.1); RED CELL DISTRIBUTION WIDTH 14.5 % (11.6-14.6); WHITE BLOOD COUNT 5.8 x1000/uL (4.5-11.0)
[2025-05-07 05:45] LABS: POTASSIUM 4.2 mEq/L (3.5-5.1)
[2025-05-07 05:47] LABS: CALCIUM 8.5 mg/dL (8.7-10.4)
[2025-05-07 05:55] LABS: CREATININE 5.7 mg/dL (0.6-1.3)
[2025-05-07] MEDS: HYDROCODONE/ACETAMINOPHEN 5/325MG TABLET PO PRN (06:32)
[2025-05-07] MEDS: PROPOFOL 10MG/ML 100ML 100 ML IV PRN (06:54)
[2025-05-07 08:42] LABS: BASOPHILS % 0.8 % (0.0-2.0); EOSINOPHILS % 4.4 % (0.0-5.0); HEMATOCRIT. 32.4 % (42.0-52.0); HEMOGLOBIN. 10.8 g/dL (14.0-18.0); MEAN CORPUSCULAR HEMOGLOBIN 32.6 pg (28.0-32.0); MEAN CORPUSCULAR HGB CONC 33.2 g/dL (31.0-37.0); MEAN CORPUSCULAR VOLUME 98.2 fL (80.0-94.0); NEUTROPHILS % 72.8 % (40.0-76.0); PLATELET 125 x1000/uL (130-400); RED CELL DISTRIBUTION WIDTH 14.9 % (11.6-14.6)
[2025-05-07 08:59] LABS: BG BASE EXCESS 0.1 mmol/L (-2.0-3.0); BG CARBOXYHEMOGLOBIN 0.2 % (0.5-1.5); BG DEOXYHEMOGLOBIN 1.3 % (0.0-5.0); BG FRACTION INSPIRED OXYGEN 40; BG HCO3 ACT 25.4 mmol/L (21.0-28.0); BG METHEMOGLOBIN 0.3 % (0.5-1.5); BG OXYGEN SATURATION 98.7 % (94.0-98.0); BG OXYHEMOGLOBIN 98.2 % (94.0-98.0); BG PCO2 44.3 mmHg (35.0-48.0); BG PH 7.377 (7.350-7.450); BG PO2 145.2 mmHg (83.0-108.0); BG SAMPLE SITE RIGHT RADIAL; BG VENT MODE VENT - AC
[2025-05-07 09:12] LABS: POTASSIUM 4.6 mEq/L (3.5-5.1)
[2025-05-07 09:13] LABS: CALCIUM 9.3 mg/dL (8.7-10.4)
[2025-05-07 09:42] LABS: CREATININE 6.4 mg/dL (0.6-1.3)
[2025-05-07 11:56] LABS: BG BASE EXCESS -1.4 mmol/L (-2.0-3.0); BG CARBOXYHEMOGLOBIN 0.6 % (0.5-1.5); BG DEOXYHEMOGLOBIN 3.6 % (0.0-5.0); BG FRACTION INSPIRED OXYGEN 30; BG HCO3 ACT 23.6 mmol/L (21.0-28.0); BG METHEMOGLOBIN 0.3 % (0.5-1.5); BG OXYGEN SATURATION 96.4 % (94.0-98.0); BG OXYHEMOGLOBIN 95.5 % (94.0-98.0); BG PCO2 40.5 mmHg (35.0-48.0); BG PH 7.383 (7.350-7.450); BG SAMPLE SITE RIGHT RADIAL; BG TOTAL HEMOGLOBIN 11.7 g/dL (13.5-17.5); BG VENT MODE VENT - CPAP
[2025-05-07 15:04] LABS: BG CARBOXYHEMOGLOBIN 0.9 % (0.5-1.5); BG DEOXYHEMOGLOBIN 2.1 % (0.0-5.0); BG FRACTION INSPIRED OXYGEN 35; BG HCO3 ACT 20.1 mmol/L (21.0-28.0); BG METHEMOGLOBIN 0.1 % (0.5-1.5); BG OXYGEN SATURATION 97.9 % (94.0-98.0); BG OXYHEMOGLOBIN 96.9 % (94.0-98.0); BG PCO2 37.5 mmHg (35.0-48.0); BG PH 7.348 (7.350-7.450); BG SAMPLE SITE RIGHT RADIAL; BG TOTAL HEMOGLOBIN 11.3 g/dL (13.5-17.5); BG VENT MODE COOL AEROSOL
[2025-05-08] VITALS (59 sets, daily range): BP systolic 19–176; BP diastolic 27–122; PULSE 60–86; RESP 11–22; TEMP 36.114–36.7; O2SAT 92–100
[2025-05-08] MEDS: METHYLPREDNISOLONE SOD SUCC 40MG/ML (ACT-O-VIAL) IV SCH (00:49)
[2025-05-08 06:10] LABS: EOSINOPHILS % 5.3 % (0.0-5.0); HEMATOCRIT. 32.5 % (42.0-52.0); HEMOGLOBIN. 10.8 g/dL (14.0-18.0); LYMPHOCYTES % 18.7 % (20.0-50.0); MEAN CORPUSCULAR HEMOGLOBIN 32.5 pg (28.0-32.0); MEAN CORPUSCULAR HGB CONC 33.1 g/dL (31.0-37.0); MEAN CORPUSCULAR VOLUME 98.2 fL (80.0-94.0); MEAN PLATELET VOLUME 9.1 fl (7.4-10.4); MONOCYTES % 14.9 % (2.0-8.0); NEUTROPHILS % 60.1 % (40.0-76.0); PLATELET 132 x1000/uL (130-400); RED BLOOD CELL COUNT 3.32 mill/uL (4.7-6.1); RED CELL DISTRIBUTION WIDTH 14.5 % (11.6-14.6)
[2025-05-08 06:25] LABS: POTASSIUM 4.8 mEq/L (3.5-5.1)
[2025-05-08 06:26] LABS: CALCIUM 8.7 mg/dL (8.7-10.4)
[2025-05-08 06:38] LABS: CREATININE 7.5 mg/dL (0.6-1.3)
[2025-05-08] MEDS: IPRATROPIUM/ALBUTEROL 0.5-3(2.5)MG/3ML NEB HHN SCH (09:38)
[2025-05-08 10:11] LABS: BASOPHILS % 1.1 % (0.0-2.0); EOSINOPHILS % 4.9 % (0.0-5.0); HEMATOCRIT. 31.9 % (42.0-52.0); HEMOGLOBIN. 10.5 g/dL (14.0-18.0); LYMPHOCYTES % 17.2 % (20.0-50.0); MEAN CORPUSCULAR HEMOGLOBIN 32.7 pg (28.0-32.0); MEAN CORPUSCULAR HGB CONC 32.9 g/dL (31.0-37.0); MEAN CORPUSCULAR VOLUME 99.2 fL (80.0-94.0); MEAN PLATELET VOLUME 8.3 fl (7.4-10.4); MONOCYTES % 13.3 % (2.0-8.0); NEUTROPHILS % 63.5 % (40.0-76.0); PLATELET 127 x1000/uL (130-400); RED BLOOD CELL COUNT 3.21 mill/uL (4.7-6.1); RED CELL DISTRIBUTION WIDTH 14.7 % (11.6-14.6); WHITE BLOOD COUNT 4.5 x1000/uL (4.5-11.0)
[2025-05-08 10:23] LABS: CALCIUM 8.6 mg/dL (8.7-10.4)
[2025-05-08] MEDS ORDERED: VANCOMYCIN 750MG PMX (XELLIA) 150 ML IV SCH (15:00)
[2025-05-08] MEDS: VANCOMYCIN 750MG PREMIX 150 ML IV SCH (15:16)
[2025-05-08] MEDS: ACETAMINOPHEN 325MG TABLET PO PRN (16:59)
[2025-05-09] VITALS (7 sets, daily range): BP systolic 152–182; BP diastolic 53–87; PULSE 61–71; RESP 14–24; TEMP 36.6–37.2; O2SAT 96–100
[2025-05-09 08:26] LABS: BASOPHILS % 0.5 % (0.0-2.0); EOSINOPHILS % 0.5 % (0.0-5.0); HEMATOCRIT. 33.9 % (42.0-52.0); HEMOGLOBIN. 11.5 g/dL (14.0-18.0); LYMPHOCYTES % 12.7 % (20.0-50.0); MEAN CORPUSCULAR HEMOGLOBIN 32.4 pg (28.0-32.0); MEAN CORPUSCULAR HGB CONC 33.9 g/dL (31.0-37.0); MEAN CORPUSCULAR VOLUME 95.7 fL (80.0-94.0); MEAN PLATELET VOLUME 9.4 fl (7.4-10.4); MONOCYTES % 11.7 % (2.0-8.0); NEUTROPHILS % 74.6 % (40.0-76.0); PLATELET 158 x1000/uL (130-400); RED BLOOD CELL COUNT 3.54 mill/uL (4.7-6.1); RED CELL DISTRIBUTION WIDTH 14.5 % (11.6-14.6); WHITE BLOOD COUNT 7.1 x1000/uL (4.5-11.0)
[2025-05-09 08:37] LABS: CALCIUM 9.5 mg/dL (8.7-10.4); POTASSIUM 4.4 mEq/L (3.5-5.1)
[2025-05-09] MEDS: PREDNISONE 20MG TABLET PO SCH (08:46)
[2025-05-09 09:02] LABS: CREATININE 5.8 mg/dL (0.6-1.3)
[2025-05-09] MEDS: NITROGLYCERIN OINT 1GM/INCH UDPKT TD SCH (14:10)
[2025-05-09] MEDS ORDERED: LOSA25TA26 PO (14:32)
[2025-05-09] MEDS ORDERED: ISOS60TA76 PO (14:32)
[2025-05-09] MEDS ORDERED: FLUT1BLS3 INH (14:53)
[2025-05-09] MEDS ORDERED: P20 MT (14:53)
[2025-05-09] MEDS: LOSARTAN 25 MG TABLET PO SCH (15:22)
== END 2025-05-09 17:14 | disposition home or self-care (01) | DRG 640 ==
LOC: ER 18:34 → MICUSO 20:25 → EDBEDREQ 20:29 → EDBEDREQTM 20:29 → EDBEDREQSVC 20:29 → CANRESERV 21:32 → ENRESERV 21:32 → 3WST 05-08 21:56
PROVIDERS: ADMIT Internal Medicine; ATTEND Internal Medicine
PROC: 5A1D70Z Performance of Urinary Filtration, Intermittent, Less than 6 Hours Per Day (ICD-10-PCS; principal; 2025-05-05)
PROC: 5A1945Z Respiratory Ventilation, 24-96 Consecutive Hours (ICD-10-PCS; 2025-05-05)
PROC: 0BH17EZ Insertion of Endotracheal Airway into Trachea, Via Natural or Artificial Opening (ICD-10-PCS; 2025-05-05)
PROC: 5A1D70Z Performance of Urinary Filtration, Intermittent, Less than 6 Hours Per Day (ICD-10-PCS; 2025-05-06)
PROC: 5A1D70Z Performance of Urinary Filtration, Intermittent, Less than 6 Hours Per Day (ICD-10-PCS; 2025-05-08)
PROC: 5A1935Z Respiratory Ventilation, Less than 24 Consecutive Hours (ICD-10-PCS; 2025-05-08)
DX: E87.5 Hyperkalemia (principal); G93.41 Metabolic encephalopathy; J96.01 Acute respiratory failure with hypoxia; N18.6 End stage renal disease; I13.2 Hypertensive heart and chronic kidney disease with heart failure and with stage 5 chronic kidney disease, or end stage renal disease; I50.9 Heart failure, unspecified; E11.22 Type 2 diabetes mellitus with diabetic chronic kidney disease; D64.9 Anemia, unspecified; I95.9 Hypotension, unspecified; R00.1 Bradycardia, unspecified; J44.9 Chronic obstructive pulmonary disease, unspecified; Z99.2 Dependence on renal dialysis; Z79.899 Other long term (current) drug therapy
CPT/HCPCS: 31500; 31720; 36415; 36600; 71045; 80048; 80076; 80202; 82375; 82550; 82553; 82805; 82962; 83605; 83735; 83880; 84100; 84132; 84145; 84478; 84484; 85025; 85027; 86705; 86709; 87340; 90935; 93005; 93970; 94003; 94070; 94640; 94660; 94664; 94760; 96365; 96375; 98960; 99285; A4606; J0330; J0360; J0461; J0610; J1171; J1265; J1650; J1815; J2704; J2919; J3370; J3490; J7060; J7512